=== PATIENT | female | born 1990 | race Caucasian/White ===

== ENCOUNTER → 2016-12-10 | Outpatient (CLI) | payer OTHER ==
[2016-12-10 13:07] LABS: MEAN CORPUSCULAR HEMOGLOBIN 30.8 pg (27.0-33.0); MEAN CORPUSCULAR HGB CONC 32.5 g/dl (32.0-36.5); MEAN CORPUSCULAR VOLUME 94.7 fl (80.0-96.0); RED CELL DISTRIBUTION WIDTH 12.7 % (11.5-14.5); WHITE BLOOD COUNT 10.4 K/mm3 (4.0-10.0)
== END ==
LOC: M SMT 08:02
PROVIDERS: ATTEND Advanced Practice Midwife
DX: Z34.82 Encounter for supervision of other normal pregnancy, second trimester (principal)

== ENCOUNTER → 2017-01-14 | Outpatient (CLI) | payer OTHER ==
--- NOTE | 2017-01-14 17:23 | REP ---
OB ULTRASOUND: Real-time sonographic evaluation of the gravid uterus is performed. There is a single living intrauterine gestation. Estimated gestational age 31 weeks 1 day, EDC 03/17/2017. Today's measurements indicate appropriate growth. BPD 81 mm = 32 weeks 4 days, 71st percentile HC 285 mm = 31 weeks 2 days, 52nd percentile AC 269 mm = 31 weeks 0 days, 49th percentile FL 60 mm = 31 weeks 2 days, 53rd percentile HC/AC ratio 1.06, within normal range. Estimated weight 1730 grams, 46th percentile. Cervix closed and measures 4.2 cm in length. heart rate 144 beats per minute. Amniotic fluid within normal limits, AUTUMN 12.0, within normal range of 8.8 to 23.8. S/D ratio 3.09, within normal range. RI 0.68 within normal range. Visualized anatomy includes four chamber heart, stomach, three vessel cord, kidneys, bladder and spine which are all grossly unremarkable. position vertex. Placenta is posterior and fundal and grade 1 with no previa or abruption. IMPRESSION: Appropriate growth as above. Signed by Mu Hernández MD 01/15/2017 03:28 P
== END ==
LOC: M RAD 15:59
PROVIDERS: ATTEND Specialist
DX: O36.5931 Maternal care for other known or suspected poor fetal growth, third trimester, fetus 1 (principal); Z3A.31 31 weeks gestation of pregnancy

== ENCOUNTER → 2017-02-20 | Outpatient (REF) | payer OTHER | LOC: M LAB REF 16:50 | PROVIDERS: ATTEND Obstetrics & Gynecology | DX: Z34.83 Encounter for supervision of other normal pregnancy, third trimester (principal) ==

== ENCOUNTER 2017-03-08 08:13 | Inpatient (IN) | payer OTHER ==
[~2017-03-08] VITALS: Ht 170.2 cm; Wt 77.0 kg
[2017-03-08 09:49] LABS: MEAN CORPUSCULAR HEMOGLOBIN 32.1 pg (27.0-33.0); MEAN CORPUSCULAR HGB CONC 34.8 g/dl (32.0-36.5); MEAN CORPUSCULAR VOLUME 92.1 fl (80.0-96.0); RED CELL DISTRIBUTION WIDTH 13.1 % (11.5-14.5); WHITE BLOOD COUNT 18.8 K/mm3 (4.0-10.0)
--- NOTE | 2017-03-08 10:06 | HPE ---
DATE OF ADMISSION: 03/08/2017 Kenia is 27-year-old, 1, para 0, at 38-5/7 weeks gestation with an estimated date of confinement (EDC) of 03/17/2017 based on last normal menstrual period and confirmed by first trimester ultrasound. She presents to labor and delivery today with a report of uncomfortable contractions throughout the night that have progressively become closer and more painful. She does report some scant bloody show, denies leakage of fluid and her fetus has been active labor. care initiated at [facility] in the first trimester. course uncomplicated. OBSTETRICAL HISTORY: Primigravida. OB LABS: Blood type is O+, antibody screen negative, rubella immune, VDRL nonreactive. Urine culture no growth. Hepatitis B surface antigen negative, HIV negative. Hepatitis C antibody negative. Gonorrhea and chlamydia negative. She did decline all genetic serum screening markers. Glucose testing was 61 and GBS is negative. PAST MEDICAL HISTORY: Childhood varicella. SURGERIES: None. FAMILY HISTORY: Down syndrome. SOCIAL HISTORY: The patient is . She is employed as a teacher. She is a nonsmoker. Denies alcohol and drug use. No history of any sexually transmitted infections and denies history of abuse physical, sexual and emotional. ALLERGIES: NO KNOWN DRUG ALLERGIES. CURRENT MEDICATION: Include: - vitamins OBJECTIVE: Temperature 98.5, pulse 96, respirations not documented, blood pressure 116/73. She was tensing and deep breathing with her contractions. heart rate is 140 with moderate variability, positive accelerations, no decelerations observed. She is isis every 2-3 minutes. Sterile vaginal exam: 7-8 cm dilated, 100% effaced, -1 station. Spontaneous rupture of membranes for a moderate amount of clear odorless fluid. Her abdomen is gravid, cephalic presentation. Estimated weight 7 pounds. ASSESSMENT: Intrauterine at 38-5/7 weeks gestation, heart rate category 1, active labor. PLAN: Admit patient to labor and delivery. Labs as ordered. Out of bed ad thuy. Saline lock. The patient desires to cope with her labor physiologically, so out of bed positions will be encouraged as well as use of hydrotherapy. I do anticipate continued labor progress and a normal spontaneous vaginal delivery.
[2017-03-08] MEDS ORDERED: PRENTAB9 PO (10:25)
[2017-03-08] MEDS ORDERED: OXYTOCIN 30 UNITS IN 0.9% NaCl 500ML IV BAG (J2590) As Ordered ONE (13:13)
[2017-03-08 15:30] LABS: CORD GAS ABE V -10.4; CORD GAS HCO3 V 18.4 MEQ/L; CORD GAS O2 SAT V 22.1 %; CORD GAS PCO2 V 51.3 mmHg; CORD GAS PH V 7.172 UNITS; CORD GAS PO2 V 15.3 mmHg; CORD GAS SBC V 14.8 MEQ/L
[2017-03-08 15:31] LABS: CORD GAS HCO3 A 18.3 MEQ/L; CORD GAS O2 SAT A 20.8 %; CORD GAS PCO2 A 53.8 mmHg; CORD GAS PH A 7.149 UNITS; CORD GAS PO2 A 15.9 mmHg; CORD GAS SBC A 14.3 MEQ/L; CORD GAS TCO2 A 19.9 MEQ/L
[2017-03-08] MEDS ORDERED: OXYTOCIN DRIP 30 UNITS in APPROPRIATE DILUENT 1 EA IV SCH (17:07)
[2017-03-08] MEDS ORDERED: ACETAMINOPHEN 500 MG TAB PO PRN (17:15)
[2017-03-08] MEDS ORDERED: DIBUCAINE 1% OINTMENT 30GM TOP PRN (17:15)
[2017-03-08] MEDS ORDERED: DOCUSATE SODIUM 100 MG CAP PO PRN (17:15)
[2017-03-08] MEDS ORDERED: MOM 30ML SUSPENSION UDC PO PRN (17:15)
[2017-03-08] MEDS ORDERED: RHOGAM 300 MCG (1500 IU) INJ (J2790) IM SCH (17:15)
[2017-03-08] MEDS ORDERED: MEASLES,MUMPS,RUBELLA VACCINE INJ (MMR-II) (90707) SC SCH (17:15)
[2017-03-08] MEDS ORDERED: METHYLERGONOVINE MALEATE 0.2 MG TAB PO PRN (17:15)
[2017-03-08] MEDS ORDERED: ANUSOL HC CREAM 30GM TOP PRN (17:15)
[2017-03-08] MEDS: IBUPROFEN 800 MG TAB PO PRN (18:14)
[2017-03-08 18:35] VITALS: BP 125/72
--- NOTE | 2017-03-08 19:34 | PAIN ---
DATE: 03/08/2017 TIME OF : 1527. GENDER: Male. SCORES: 7 and 8. WEIGHT: 3286, or 7 pounds 4 ounces. ANESTHESIA: None. ESTIMATED BLOOD LOSS: 400 mL. CORD GASES: 7.14, 7.17, base excess is -11, -10.4. LACERATIONS: A clitoral laceration as well as a second-degree midline episiotomy. COUNTS: Five laparotomy sponges accounted for prior to and after delivery. Five sharps removed from the delivery field. MODE OF DELIVERY: A low vacuum secondary to nonreassuring heart rate tracing. DELIVERY NOTE: On 03/08/2017 at 1527, Mrs. Phillips, a 27-year-old 1, now para 1, had a low-vacuum assisted vaginal delivery of a live-born male infant, scores 7 and 8. Weight was 3286 grams, 7 pounds 4 ounces. I was initially called into the room for repetitive variable decelerations, at which time I assessed the patient, and she was noted to have been at a +3 station. She had pushed for approximately 2 hours and was also expressing maternal exhaustion. Vacuum was then placed with three sets of maternal pushing efforts with one pop-off, head was delivered left anterior occipital (RONNA) over a second-degree midline episiotomy. Suction was then released followed by delivery of right anterior shoulder, left posterior shoulder, and corpus. Cord was then clamped times two, was cut, and was taken over to the warmer, where Dr. Quiñones, corporate legal secretary, awaited. Cord blood as well as cord gases were then obtained. Placenta was drained and delivered grossly intact. A premix of 500 mL of normal saline with 30 units of Pitocin was bolused along with uterine massage until the uterus was firm. On inspection, there was a clitoral laceration as well as a second-degree episiotomy with no further extensions. Clitoral laceration was repaired with #3-0 Vicryl Rapide. The second-degree midline episiotomy was also repaired with #3-0 Vicryl Rapide. On reinspection, the cervix, vagina, and perineum were grossly intact and hemostatic. A Rea catheter was then placed and set to gravity. Mom and baby are recovering in stable condition. [facility]
[2017-03-08] MEDS ORDERED: LIDOCAINE 1% MDV INJ 50 ML VIAL INFIL ONE (21:30)
[2017-03-09 06:00] VITALS: BP 117/53
[2017-03-09] MEDS: PRENATAL VITAMIN TAB PO SCH (07:53)
[2017-03-09] MEDS: IBUPROFEN 800 MG TAB PO PRN ×2 (11:52→20:40)
[2017-03-09 18:00] VITALS: BP 120/68
[2017-03-10 05:26] VITALS: BP 118/62
[2017-03-10] MEDS ORDERED: ACET50TA PO (07:18)
[2017-03-10] MEDS ORDERED: IBUP-1114 PO (07:19)
[2017-03-10] MEDS: PRENATAL VITAMIN TAB PO SCH (08:22)
[2017-03-10] MEDS ORDERED: COLA100C3 PO (08:46)
[2017-03-10] MEDS ORDERED: MOM30SS PO (08:47)
[2017-03-10] MEDS ORDERED: ANUS2.5C2 TOP (08:49)
[2017-03-10] MEDS: IBUPROFEN 800 MG TAB PO PRN (08:59)
== END 2017-03-10 12:10 | disposition home or self-care (01) | DRG 775 ==
LOC: M LDO 08:13 → M LDI 09:06 → M OBS 18:04
PROVIDERS: ADMIT Advanced Practice Midwife; ATTEND Advanced Practice Midwife
PROC: 10D07Z6 Extraction of Products of Conception, Vacuum, Via Natural or Artificial Opening (ICD-10-PCS; principal; 2017-03-08)
PROC: 0HQ9XZZ Repair Perineum Skin, External Approach (ICD-10-PCS; 2017-03-08)
DX: O76 Abnormality in fetal heart rate and rhythm complicating labor and delivery (principal); Z37.0 Single live birth; Z3A.38 38 weeks gestation of pregnancy; O70.0 First degree perineal laceration during delivery; O75.81 Maternal exhaustion complicating labor and delivery

== ENCOUNTER → 2017-06-17 | Outpatient (REF) | payer OTHER ==
[~2017-06-17] MED LIST: ACET50TA PO; ANUS2.5C2 TOP; COLA100C5 PO; IBUP-1114 PO; MOM30SS PO; PRENTAB9 PO
== END ==
LOC: M SFHCWAGY 16:07
PROVIDERS: ATTEND Nurse Practitioner Family
DX: Z12.4 Encounter for screening for malignant neoplasm of cervix (principal)

== ENCOUNTER → 2018-06-18 | Outpatient (REF) | payer OTHER | LOC: M SFHCWAGY 15:53 | DX: Z12.4 Encounter for screening for malignant neoplasm of cervix (principal) ==

== ENCOUNTER → 2018-12-04 | Outpatient (CLI) | payer OTHER ==
[~2018-12-04] MED LIST changes: -ACET50TA PO; +MAPA500T2 PO
--- NOTE | 2018-12-04 11:13 | REP ---
Focused right breast sonography: History: Burning pain 10-11 o'clock position right upper breast. Rule out cyst. Findings: Scanning at the 10 o'clock position of the right breast in the area of patient's symptoms shows normal fibroglandular background echotexture which is somewhat heterogeneous. At 10 o'clock, there is a 0.9 x 0.3 x 0.7 cm normal lymph node. No cyst or mass lesion is seen. Impression: BIRADS category II benign findings. Small normal appearing lymph nodes seen at the 10 o'clock position in the right breast. Otherwise unremarkable sonography. Clinical follow-up is advised.
== END ==
LOC: M WHC 08:28
PROVIDERS: ATTEND Nurse Practitioner Family
DX: N64.4 Mastodynia (principal)

== ENCOUNTER → 2019-06-19 | Outpatient (REF) | payer OTHER ==
[2019-06-24 14:31] LABS: HPV HYBRID CAPTURE II Negative (Negative)
== END ==
LOC: M SFHCWAGY 16:23
PROVIDERS: ATTEND Nurse Practitioner Family
DX: Z12.4 Encounter for screening for malignant neoplasm of cervix (principal)

== ENCOUNTER → 2020-06-20 | Outpatient (REF) | payer OTHER | LOC: M LAB REF 15:00 | PROVIDERS: ATTEND Nurse Practitioner Family | DX: Z12.4 Encounter for screening for malignant neoplasm of cervix (principal) | CPT/HCPCS: 87624; G0123 ==

== ENCOUNTER → 2021-08-25 | Outpatient (REF) | payer OTHER | LOC: M SFHCWAGY 10:30 | PROVIDERS: ATTEND Advanced Practice Midwife | DX: Z12.4 Encounter for screening for malignant neoplasm of cervix (principal) ==

== ENCOUNTER → 2022-01-10 | Outpatient (CLI) | payer OTHER | LOC: M WHC 10:19 | PROVIDERS: ATTEND Registered Nurse | DX: E01.0 Iodine-deficiency related diffuse (endemic) goiter (principal) ==

== ENCOUNTER → 2022-12-14 | Outpatient (REF) | payer OTHER | LOC: M SFHCWAGY 16:46 | PROVIDERS: ATTEND Advanced Practice Midwife | DX: Z12.4 Encounter for screening for malignant neoplasm of cervix (principal) | CPT/HCPCS: 87624; G0123 ==

== ENCOUNTER → 2023-12-20 | Outpatient (REF) | payer OTHER | LOC: M SFHCWAGY 15:31 | PROVIDERS: ATTEND Advanced Practice Midwife | DX: Z12.4 Encounter for screening for malignant neoplasm of cervix (principal) | CPT/HCPCS: 87624; G0123 ==

== ENCOUNTER → 2025-01-05 | Outpatient (CLI) | payer OTHER | LOC: M WHC 08:43 | PROVIDERS: ATTEND Advanced Practice Midwife | DX: N63.20 Unspecified lump in the left breast, unspecified quadrant (principal); Z80.3 Family history of malignant neoplasm of breast | CPT/HCPCS: 77066; G0279 ==

== ENCOUNTER → 2025-02-05 | Outpatient (REF) | payer OTHER ==
[2025-02-10 15:16] LABS: HPV APTIMA Not Detected (Not Detected)
== END ==
LOC: M SFHCWAGY 13:32
PROVIDERS: ATTEND Advanced Practice Midwife
DX: Z12.4 Encounter for screening for malignant neoplasm of cervix (principal)
CPT/HCPCS: 87624; G0123